=== PATIENT | female | born 1980 | race Caucasian/White ===

== ENCOUNTER 2017-03-14 21:33 | Emergency (ER) | payer MEDICAID ==
[~2017-03-14] VITALS: Ht 165.1 cm; Wt 136.5 kg
[2017-03-14 21:52] VITALS: BP 120/80
--- NOTE | 2017-03-14 21:58 | NUR ---
TO ER BED 3
--- NOTE | 2017-03-14 22:15 | NUR ---
36 Y/O F W/C/O COUGH, FLU LIKE SYMPTOMS AND SOB. NO MED HX. O2 SAT 96% RA. PT DENIES N/V/D; SKIN IS PINK/WARM/DRY; AAOX4 WITH EVEN AND STEADY GAIT; LUNGS CLEAR BL; HR EVEN AND REGULAR; PT DENIES ANY FEVER AT THIS TIME; PATIENT STATES PAIN OF 0/10 AT THIS TIME; VSS; PATIENT POSITIONED FOR COMFORT; HOB ELEVATED; BEDRAILS UP X2; BED DOWN. ER MD MADE AWARE OF PT STATUS.
--- NOTE | 2017-03-14 22:16 | NUR ---
Patient discharged with v/s stable. Written and verbal after care instructions given and explained. Patient verbalized understanding. Ambulatory with steady gait. All questions addressed prior to discharge. Advised to follow up with PMD. DISCHARGED BY DR MADISON
[2017-03-14 22:50] VITALS: BP 120/80
== END 2017-03-14 22:16 | disposition home or self-care (01) ==
LOC: MED 21:33
DX: J20.9 Acute bronchitis, unspecified (principal)

== ENCOUNTER 2018-04-08 21:08 | Emergency (ER) | payer MEDICAID ==
[~2018-04-08] VITALS: Ht 165.1 cm; Wt 131.5 kg
[2018-04-08 21:18] VITALS: BP 127/66
[2018-04-08 22:13] VITALS: BP 141/95
== END 2018-04-08 22:13 | disposition home or self-care (01) ==
LOC: MED 21:08
DX: N39.0 Urinary tract infection, site not specified (principal)
CPT/HCPCS: 81002; 81025; 99283

== ENCOUNTER 2018-08-12 18:33 | Emergency (ER) | payer MEDICAID ==
[~2018-08-12] VITALS: Ht 165.1 cm; Wt 142.9 kg
[2018-08-12 18:40] VITALS: BP 136/105
--- NOTE | 2018-08-12 18:40 | NUR ---
PT AMBULATES TO BED 2
--- NOTE | 2018-08-12 18:58 | NUR ---
PT. CAME INTO ED DUE TO N/V/D X 2AM TODAY AND FEVER. RR EVEN AND UNLABORED . TACHY AT 120 BPM. DENIES ANY BLOOD IN VOMIT OR DIARRHEA. FEVER SINCE 2AM TOOK TYLENOL WITH SOME RELIEF. 7/10 EPIGASTRIC PAIN THAT IS NON RADIATING AND SHARP. PT IS WARM AND DRY TO TOUCH. WILL CONTINUE TO MONITOR. SAFETY PRECAUTIONS IMPLEMENTED. ER MADE AWARE.
--- NOTE | 2018-08-12 19:01 | NUR ---
PT. UNABLE TO PROVIDE URINE SAMPLE AT THIS TIME, CUP OF WATER PROVIDED AND URINE CUP AT BEDSIDE.
--- NOTE | 2018-08-12 19:15 | NUR ---
Pt report given to JEREMÍAS COOPER . Transfer of care at this time.
--- NOTE | 2018-08-12 19:20 | NUR ---
PT LAYING IN BED, VSS, AWAITING MD ZEPEDA.
--- NOTE | 2018-08-12 19:55 | NUR ---
DR DE PAZ AT BEDSIDE EVALUATING PT.
[2018-08-12] MEDS ORDERED: ONDANSETRON 4 MG/2 ML VIAL IVP ONE (21:10)
[2018-08-12] MEDS ORDERED: MORPHINE SULFATE 2 MG/ML SYR IVP ONE (21:10)
[2018-08-12 21:31] LABS: BASOPHILS % (AUTO) 0.2 % (0.0-2.0); EOSINOPHILS % (AUTO) 0.1 % (0.0-4.0); HEMATOCRIT 40.8 % (36-48); HEMOGLOBIN 13.1 g/dL (12.0-16.0); LYMPHOCYTES # (AUTO) 1.1 K/uL (2.5-16.5); LYMPHOCYTES % (AUTO) 7.8 % (20.5-51.1); MEAN CORPUSCULAR HEMOGLOBIN 24 pg (27-31); MEAN CORPUSCULAR HGB CONC 32 g/dL (33-37); MEAN CORPUSCULAR VOLUME 75.7 fL (80-94); MONOCYTES # (AUTO) 0.5 K/uL (0.8-1.0); MONOCYTES % (AUTO) 3.5 % (1.7-9.3); NEUTROPHILS # (AUTO) 12.8 K/uL (1.8-7.7); NEUTROPHILS % (AUTO) 88.4 % (42.2-75.2); PLATELET COUNT (AUTO) 353 K/uL (140-450); RED BLOOD CELL COUNT(AUTO) 5.39 MIL/uL (4.20-5.40); RED CELL DISTRIBUTION WIDTH 14.7 % (11.6-13.7); WHITE BLOOD COUNT (AUTO) 14.5 K/uL (4.8-10.8)
[2018-08-12 21:52] LABS: APPEARANCE,URINE CLEAR (CLEAR); BLOOD, URINE NEGATIVE (NEGATIVE); COLOR,URINE YELLOW (YELLOW); UGLUCOSE NEGATIVE (NEGATIVE)
[2018-08-12 21:53] LABS: BILIRUBIN,URINE NEGATIVE (NEGATIVE); LEUKOCYTE ESTERASE ,URINE NEGATIVE (NEGATIVE); NITRITE, URINE NEGATIVE (NEGATIVE)
[2018-08-12 21:54] LABS: ANION GAP 13.9 (8-16); CARBON DIOXIDE 24.7 mmol/L (21-32); CREATININE 0.8 mg/dL (0.6-1.3); POTASSIUM 3.6 mmol/L (3.5-5.1)
[2018-08-12 22:00] LABS: ALBUMIN 3.4 g/dL (3.4-5.0); TOTAL BILIRUBIN 0.6 mg/dL (0.0-1.0)
[2018-08-12 23:38] VITALS: BP 118/61
--- NOTE | 2018-08-12 23:39 | NUR ---
Patient discharged with v/s stable. Written and verbal after care instructions given and explained. Patient alert, oriented and verbalized understanding of instructions. Ambulatory with steady gait. All questions addressed prior to discharge. ID band removed. Patient advised to follow up with PMD. Rx of IMODIUM, ZOFRAN, BENTYL given. Patient educated on indication of medication including possible reaction and side effects. Opportunity to ask questions provided and answered.
== END 2018-08-12 23:38 | disposition home or self-care (01) ==
LOC: MED 18:33
DX: A08.4 Viral intestinal infection, unspecified (principal)
CPT/HCPCS: 36415; 80053; 81003; 81025; 83690; 85025; 96374; 96375; 99284; J2270; J2405

== ENCOUNTER 2019-03-07 07:46 | Emergency (ER) | payer MEDICAID ==
[~2019-03-07] VITALS: Ht 170.2 cm; Wt 146.7 kg
[2019-03-07 08:00] VITALS: BP 118/74
--- NOTE | 2019-03-07 08:05 | NUR ---
PT REFUSED TO PROVIDE URINE SAMPLE STATING THERE IS NO CHANCE SHE IS . PT AMBULATED OUT TO LOBBY AT THIS TIME, JOSE
--- NOTE | 2019-03-07 09:06 | NUR ---
PATIENT AMBULATED TO BED 2.
--- NOTE | 2019-03-07 09:16 | NUR ---
38 Y FEMALE C/O FLU LIKE SYMPTOMS. PT REPORTS SHARP THROAT WITH SWALLOWING AND PRODUCTIVE COUGH AT 7/10. PT HAS TREATED WITH TYLENOL WITH SOME RELIEF. FEVER OF 101.4 LAST NIGHT, CURRENT TEMP 98.5 ORAL. PT REPORTS COUGHING UP THICK GREENISH/BROWN PHLEM. PT SAW PCP ON SATURDAY, AND THEY STATED IT WAS VIRAL, BUT PT IS WORRIED BECAUSE IT HAS BEEN 2 WEEKS AND IS UNABLE TO GET RIDE OF SYMPTOMS. LUNGS CLEAR BILATERALLY. VSS AT THIS TIME. PT IS ALERT AND ORIENTED. BED IS DOWN, LOCKED, BED RAIL X 1, ERMD TO SEE PT. MEDHX:DENIES RX:TYLENOL
[2019-03-07 09:55] VITALS: BP 111/70
--- NOTE | 2019-03-07 10:33 | NUR ---
Patient discharged with v/s stable. Written and verbal after care instructions given and explained. Patient alert, oriented and verbalized understanding of instructions. Ambulatory with steady gait. All questions addressed prior to discharge. ID band removed. Patient advised to follow up with PMD. Rx of CLARITIN,MOTRIN,PREDNISONE given. Patient educated on indication of medication including possible reaction and side effects. Opportunity to ask questions provided and answered. Addendum: 03/07/19 at 1035 by ANGIE [id number] DISCHARGE TIME.
== END 2019-03-07 10:33 | disposition home or self-care (01) ==
LOC: MED 07:46
DX: J30.2 Other seasonal allergic rhinitis (principal)
CPT/HCPCS: 99283